=== PATIENT | female | born 1995 | race Asian ===

== ENCOUNTER 2021-11-25 09:57 | Emergency (ER) | payer SELFPAY ==
[~2021-11-25] VITALS: Ht 160 cm; Wt 59.1 kg
[2021-11-25 10:05] VITALS: TEMP 98.3
[2021-11-25 10:43] VITALS: BP 116/70; PULSE 75
== END 2021-11-25 10:43 | disposition home or self-care (01) ==
LOC: COL.ER 09:57
DX: S50.12XA Contusion of left forearm, initial encounter (principal); W23.0XXA Caught, crushed, jammed, or pinched between moving objects, initial encounter; Y92.59 Other trade areas as the place of occurrence of the external cause; Y99.0 Civilian activity done for income or pay